=== PATIENT | female | born 1955 | race Caucasian/White ===

== ENCOUNTER 2016-10-30 10:52 | Day surgery (SDC) | payer BC ==
[2016-10-24 16:23] LABS: BASOPHILS 0.8 %; BASOPHILS ABSOLUTE 0.05 10/3/uL (0.0-0.16); EOSINOPHILS 0.5 %; EOSINOPHILS ABSOLUTE 0.03 10/3/uL (0.0-0.53); HEMATOCRIT 43.4 % (36.0-48.0); HEMOGLOBIN 14.3 g/dL (12.0-16.0); IMMATURE GRANULOCYTES 0.2 %; IMMATURE GRANULOCYTES ABSOLUTE 0.01 10/3/uL (0.0-0.11); LYMPHOCYTES 29.2 %; MANUAL DIFF NO %; MEAN CORPUS HGB CONC 32.9 g/dL (32.0-36.0); MEAN CORPUSCULAR HEMOGLOB 30.9 pg (26.0-34.0); MEAN CORPUSCULAR VOLUME 93.7 fL (80-100); MEAN PLATELET VOLUME 9.3 fL (9.2-13.0); MONOCYTES 5.7 %; MONOCYTES ABSOLUTE 0.35 10/3/uL (0.21-1.20); NEUTROPHILS 63.6 %; NEUTROPHILS ABSOLUTE 3.93 10/3/uL (2.02-8.40); PLATELET COUNT 253 10/3/uL (150-400); RBC DISTRIBUTION WIDTH 12.5 % (12.0-16.0); RED CELL COUNT 4.63 10/6/uL (4.0-5.6); WHITE BLOOD CELLS 6.2 10/3/uL (4.5-10.5)
[2016-10-24 16:39] LABS: BUN (BLOOD UREA NITROGEN) 13 MG/DL (6-23); CALCIUM, SERUM 9.5 MG/DL (8.5-10.4); CHLORIDE, SERUM 106 MMOL/L (96-112); CO2 (CARBON DIOXIDE) 30 MMOL/L (24-34); CREATININE 0.81 MG/DL (0.55-1.02); GFR AFRICAN AMERICAN 91 ML/MIN (>=60); GFR NON AFRICAN AMERICAN 79 ML/MIN (>=60); GLUCOSE, SERUM 95 MG/DL (60-99); POTASSIUM, SERUM 4.2 MMOL/L (3.5-5.3); SODIUM, SERUM 142 MMOL/L (135-148)
--- NOTE | ~2016-10-30 | OP ---
Record Of Operation [facility] [address] [place]. [address] NAME: KATERINA MARTINEZ : 57 STATUS : REG [facility] [place] PAT#: [id number] AGE: 61 ADM/REG DATE : 10/30/16 MR#: [id number] REPORT SERV DATE: 10/30/16 DICTATED BY: LUCA JACOBSEN DATE: 10/30/16 REPORT STATUS : Draft TRANSCRIBED BY: MODL DATE: 10/30/16 DATE OF PROCEDURE: 10/30/2016 PRIMARY SURGEON: Luca Jacobsen M.D. STERILE PROCESSING TECHNOLOGIST: Mark Ferguson. PREOPERATIVE DIAGNOSIS: 6 cm pelvic mass with pain. 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 PROCEDURE PERFORMED: CPT code 80892 da Stacey (laparoscopic robotic) hysterectomy with bilateral salpingo-oophorectomy. ESTIMATED BLOOD LOSS: 5 mL. MATERIAL FORWARDED TO LABORATORY FOR EXAMINATION: Correct as listed in the pathology report. INDICATIONS AND FINDINGS: Katerina Martinez is a 61-year-old 0, seen in consultation on 10/24/2016, regarding a hypoechoic 6-cm right adnexal mass without associated ascites, adenopathy or other masses noted on her 10/11/2016 pelvic ultrasound. CA-125 was reassuring at 9.9. She presented in late September with new onset lower abdominal pain. She has no risk factors for ovarian cancer. FINDINGS AT THE TIME OF SURGERY: She has a small uterus, atrophic right adnexa with a small ovarian cortical nodule. She has a symmetrically enlarged, 6-cm right ovary mass that is removed intact, and upon extirpation, is inspected and is consistent with a mucinous cystadenoma. No other abnormalities were noted. PROCEDURE IN DETAIL: The patient was taken to the operating room, where under general endotracheal anesthesia, she was placed in the modified lithotomy position using Remington stirrups. The abdomen and vagina were prepped and the patient was draped. A KAL uterine manipulator was placed. A Veress needle was inserted approximately 6 cm above the umbilicus, and pneumoperitoneum was established. A non-bladed 10/12 trocar was inserted through the puncture site. The da Stacey scope was inserted and under direct visualization, three 8-mm cannulas for the da Stacey system were inserted; two in the lower quadrants and one in the right midaxillary line. Accessory non-bladed 10/12 trocar was placed in the left upper quadrant. The patient was placed in Trendelenburg and the robot was assembled. From the console, a thorough intraabdominal pelvic exploration was undertaken. Sharp electrocautery enterolysis was performed to restore normal anatomy. Pelvic washings were harvested. The retroperitoneal spaces were entered over the psoas muscles with extension to the round ligaments, which were isolated, coagulated with bipolar cautery and transected with monopolar scissors. The anterior leaves of the broad ligament were dissected to the vesicouterine fold. The bladder was dissected off the lower uterine segment and vesicovaginal septum with electrocautery without difficulty. The perirectal spaces were developed and the ovarian vessels were skeletonized, coagulated with bipolar cautery, and Record Of Operation [facility] [address] [place]. [address] NAME: KATERINA MARTINEZ : 57 STATUS : [facility] [place] PAT#: [id number] AGE: 61 ADM/REG DATE : 10/30/16 MR#: [id number] REPORT SERV DATE: 10/30/16 DICTATED BY: LUCA JACOBSEN DATE: 10/30/16 REPORT STATUS : Draft TRANSCRIBED BY: NICOLE DATE: 10/30/16 transected with monopolar scissors. The posterior leaves of the broad ligament were dissected to the uterosacral ligaments. The uterine arteries were skeletonized. They were coagulated with bipolar cautery, transected with monopolar scissors. The cardinal and uterosacral ligaments were dissected with monopolar cautery to a level below the cervix. The vagina was entered over the INGRID nonconductive ring, and using electrocautery in a circumferential fashion, the hysterectomy was completed. The specimen was removed through the vagina where it was there after we inspected and the findings were as noted. The pelvis was irrigated, suctioned, and inspected, and found to be free of clot, blood, or debris. The vaginal cuff was closed with a running stitch #3-0 V-Loc. The pneumoperitoneum was reduced. All instruments were removed. All counts were correct. The 10/12 fascial incisions were closed with [id number] stitches of 0 Vicryl. The skin incisions were closed with subcuticular stitches of 4-0 Monocryl followed by Dermabond. The patient was awakened, taken to the recovery room in stable condition after having tolerated the procedure well. GAVIOTA/NICOLE Luca Jacobsen M.D. / [id number] CC: Luca Jacobsen M.D.
[~2016-10-30 10:52] MED LIST: CRESTOR5 MG PO
== END 2016-10-30 17:52 | disposition home or self-care (01) ==
LOC: SDC 10:52
PROVIDERS: Obstetrics & Gynecology Gynecologic Oncology
PROC: 0UTC4ZZ Resection of Cervix, Percutaneous Endoscopic Approach (ICD-10-PCS; 2016-10-30)
PROC: 0UT24ZZ Resection of Bilateral Ovaries, Percutaneous Endoscopic Approach (ICD-10-PCS; 2016-10-30)
PROC: 0UT74ZZ Resection of Bilateral Fallopian Tubes, Percutaneous Endoscopic Approach (ICD-10-PCS; 2016-10-30)
PROC: 0UT94ZZ Resection of Uterus, Percutaneous Endoscopic Approach (ICD-10-PCS; principal; 2016-10-30 11:30)
DX: D27.0 Benign neoplasm of right ovary (principal); E78.5 Hyperlipidemia, unspecified; Z88.5 Allergy status to narcotic agent; Z79.899 Other long term (current) drug therapy; Z98.890 Other specified postprocedural states
CPT/HCPCS: 36415; 71020; 80048; 85025; 86850; 86900; 86901; 88112; 88305; 88307; 93005; A9270-GY; J0694; J1170; J1885; J2250; J2405; J2710; J3010